=== PATIENT | female | born 2005 | race Two or more races ===

== ENCOUNTER 2024-01-09 11:23 | Outpatient (CLI) | payer OTHER | END 2024-01-09 11:30 | disposition home or self-care (01) | LOC: SONOGRAMA 11:23 | PROVIDERS: ATTEND Pathology Anatomic Pathology & Clinical Pathology | DX: D24.1 Benign neoplasm of right breast (principal); N63.10 Unspecified lump in the right breast, unspecified quadrant ==

== ENCOUNTER 2024-07-24 06:15 | Day surgery (SDC) | payer OTHER ==
[2024-07-23 09:50] LABS: HEMATOCRIT 35.2 % (36.0-45.00); HEMOGLOBIN 12.3 g/dL (12.0-15.00); MEAN CELL VOLUME 85.7 fL (80.00-100.00); MEAN CORPUSCULAR HEMOGLOBIN 30.1 pg (27.00-32.0); MEAN CORPUSCULAR HGB CONC 35.1 g/dl (32.0-36.0); PLATELET COUNT 270 K/uL (150-450); RED BLOOD COUNT 4.11 M/uL (4.00-6.00); RED CELL DISTRIBUTION WIDTH 13.6 % (11.5-14.5)
[2024-07-23 09:54] LABS: URINE APPEARANCE Clear; URINE BILIRRUBIN Negative (NEGATIVE); URINE BLOOD Negative; URINE COLOR Yellow; URINE GLUCOSE Negative (NEGATIVE); URINE KETONE Negative (NEGATIVE); URINE LEUKOCYTE Small; URINE NITRATE Negative; URINE PROTEIN Negative (NEGATIVE)
[2024-07-23 09:58] LABS: URINE BACTERIA 1007.2 uL (0.0-1933); URINE EPITHELIAL CELLS 15.6 uL (0.0-38.8); URINE WBC 166.7 uL (0.0-23.2)
[2024-07-23 09:59] LABS: URINE RBC 1.1 uL (0.0-20.8)
[2024-07-23 10:11] LABS: PARTIAL THROMBOPLASTIN TIME 34.7 SECONDS (22.0-34.0); PROTHROMBIN TIME 10.9 SECONDS (9.0-11.5)
[2024-07-23 10:21] VITALS: BP 105/72
[2024-07-23 10:24] LABS: ALBUMIN 3.4 gm/dL (3.4-5.0); BILIRUBIN TOTAL 0.21 mg/dL (0.3-1.2); CALCIUM 9.2 mg/dL (8.5-10.1); CREATININE SERUM 0.49 mg/dL (0.55-1.02); GFR 159.42; POTASSIUM 4.13 mEq/L (3.5-5.1); TOTAL PROTEIN 7.4 gm/dL (6.4-8.2)
[~2024-07-24] VITALS: Ht 162.6 cm; Wt 76.2 kg
[2024-07-24] MEDS ORDERED: CEFAZOLIN SODIUM 1,000 MG VIAL IV SCH (10:00)
[2024-07-24] MEDS ORDERED: CHLORHEXIDINE GLUCONATE 120 ML BOTTLE TOP SCH (10:00)
== END 2024-07-24 12:10 | disposition home or self-care (01) ==
LOC: CIR.AMB 06:15
PROVIDERS: ATTEND Surgery
DX: D24.1 Benign neoplasm of right breast (principal); D48.61 Neoplasm of uncertain behavior of right breast